=== PATIENT | female | born 1950 | race Caucasian/White ===

== ENCOUNTER 2022-01-02 09:51 | Emergency (ER) | payer MEDICARE ==
[2022-01-02 12:29] LABS: BASOPHIL 0.2 % (0-2); EOSINOPHIL 0.2 % (0-7); HCT 30.3 % (37.0-47.0); LYMPHOCYTE 23.9 % (15-48); MCH 35.7 pg (25.0-31.0); MCV 108.2 fL (78.0-100.0); MONOCYTE 5.9 % (0-12); MPV 9.2 fL (6.0-9.5); NEUTROPHIL 69.3 % (41-80); NRBC 0; PLT 150 K/uL (150-400); RDW 12.4 % (11.5-14.0); WBC 4.1 K/uL (4.0-10.5)
[2022-01-02 12:54] LABS: BUN/CREAT RATIO (CALC) 32.8 RATIO; CREATININE 0.61 mg/dL (0.51-0.95); POTASSIUM 3.9 mmol/L (3.5-5.1)
== END 2022-01-02 13:41 | disposition home or self-care (01) ==
LOC: FER 09:51
PROVIDERS: Emergency Medicine
DX: R00.2 Palpitations (principal); Z28.310 Unvaccinated for COVID-19
CPT/HCPCS: 36415; 80048; 85025; 93005

== ENCOUNTER 2022-01-09 14:21 | Emergency (ER) | payer MEDICARE ==
[2022-01-09 15:46] LABS: BASOPHIL 0.3 % (0-2); EOSINOPHIL 0.3 % (0-7); HCT 29.4 % (37.0-47.0); HGB 9.9 g/dl (12.5-16.0); LYMPHOCYTE 18.1 % (15-48); MCH 34.9 pg (25.0-31.0); MCHC 33.7 g/dL (32.0-36.0); MCV 103.5 fL (78.0-100.0); MONOCYTE 7.9 % (0-12); MPV 9.4 fL (6.0-9.5); NEUTROPHIL 72.8 % (41-80); NRBC 0; PLT 168 K/uL (150-400); RBC 2.84 M/uL (4.20-5.40); RDW 11.9 % (11.5-14.0); WBC 3.5 K/uL (4.0-10.5)
[2022-01-09 16:28] LABS: BILIRUBIN - TOTAL 0.4 mg/dL (0.2-1.0); BUN/CREAT RATIO (CALC) 31.4 RATIO; CREATININE 0.7 mg/dL (0.51-0.95); GLOBULIN (CALCULATION) 3.5 g/dL; LACTIC ACID 0.9 mmol/L (0.4-1.9); POTASSIUM 3.8 mmol/L (3.5-5.1); TOTAL PROTEIN 6.5 g/dL (6.4-8.2)
[2022-01-09] MEDS ORDERED: CEPHALEXIN500 MG PO (16:48)
== END 2022-01-09 16:59 | disposition home or self-care (01) ==
LOC: FER 14:21
PROVIDERS: Physician Assistant
DX: L89.152 Pressure ulcer of sacral region, stage 2 (principal); I10 Essential (primary) hypertension; E03.9 Hypothyroidism, unspecified; Z28.310 Unvaccinated for COVID-19; Z88.5 Allergy status to narcotic agent; Z79.890 Hormone replacement therapy; Z79.899 Other long term (current) drug therapy
CPT/HCPCS: 36415; 80053; 83605; 85025; 99283